=== PATIENT | female | born 1945 | race Caucasian/White ===

== ENCOUNTER → 2018-04-25 | Day surgery (SDC) | payer MEDICARE ==
[~2018-04-25] MED LIST: IV RINGERS,LACTATED 1000ML 1,000 ML IV SCH; LEVO75TA5 PO; LIDOCAINE 1% PF 2 ML VIAL. ID PRN; LIDOCAINE 2% PF 2ML VIAL. ONE; MIDAZOLAM HCL/PF 2 MG/2 ML VIAL. IV PRN; PROPOFOL 20 ML IV ONE; SIMV10TA3 PO; fentaNYL PF VIAL 100 MCG/2 ML VIAL IV PRN
[2018-04-25 11:00] VITALS: BP 120/68
--- NOTE | 2018-04-25 23:57 | HP ---
ADMIT DATE: UPDATE HISTORY AND PHYSICAL REFERRING PHYSICIAN: Dr. Atul Davis. REASON FOR REFERRAL: Dysphagia. HISTORY OF PRESENT ILLNESS: This is a 72-year-old female whose past medical history is significant for reflux, hyperlipidemia and hypothyroidism, who is seen for dysphagia in the upper esophagus, moderately severe and unchanged, mainly with solids, but occasionally with liquids, with symptoms of heartburn. Risk factors for reflux are positive for alcohol, but not caffeine or tobacco. She has a sticking sensation. Weight and appetite have been stable. With continued issues, she requests additional evaluation. PAST MEDICAL HISTORY: Hypothyroidism, hyperlipidemia and reflux. ALLERGIES: PENICILLIN. MEDICATIONS: Include levothyroxine and simvastatin. SOCIAL HISTORY: She is a nonsmoker, social drinker. FAMILY HISTORY: Significant for breast cancer with grandmother, CVA with the father, colon polyps with sister and DE with the father. PAST SURGICAL HISTORY: Status post breast surgery and . REVIEW OF SYSTEMS: Per records. PHYSICAL EXAMINATION: GENERAL: Reveals a well-nourished, well-developed female, who is alert, cooperative, in no acute distress. VITAL SIGNS: Temperature is 97, pulse 91 and respirations are 20. HEENT EXAMINATION: Reveals normocephalic and atraumatic head. Pupils and extraocular muscles are not tested. Sclerae anicteric. NECK: Supple. LUNGS: Clear. CARDIOVASCULAR EXAMINATION: Reveals an S1 and S2, without S3, S4 or appreciable murmur. ABDOMEN: Exam reveals soft abdomen. Normal bowel sounds, without appreciable hepatosplenomegaly. EXTREMITIES: Exam reveals no cyanosis, clubbing or edema. IMPRESSION AND PLAN: Dysphagia, etiology is to be determined. Differential includes Schatzki's ring, eosinophilic esophagitis, malignancy, Diana's, achalasia and extrinsic compression. Therefore, I recommend upper endoscopy to further assess possible biopsies and dilatation. If this is unrevealing, then imaging CT scan and/or motility study may be pursued. PEPPER MAGAÑA MD DR: LAURA/natalie JOB#: [id number] / [id number]
--- NOTE | 2018-04-29 09:09 | PATHOLOGY ---
[facility] Accession Number: [id number] . 01 Material submitted: . DISTAL ESOPHAGUS . 01 Clinician provided ICD-10: R13.10 . 01 Clinical history: . Dysphagia, rule out Diana's . 02 Diagnosis: Esophageal biopsies, distal esophagus: - Esophagitis with eosinophils. See comment. . (JPM/at;04/28/2018) QTA/04/28/2018 . 02 Comment: Sections of the distal esophageal biopsy reveal segments of focally tangentially oriented, hyperplastic squamous esophageal mucosa. There are focally increased intraepithelial eosinophils. The differential diagnosis of esophagitis with eosinophils includes reflux esophagitis, "pill esophagitis", and eosinophilic esophagitis. In one focus, there are approximately 20 intraepithelial eosinophils per high powered field, such that I cannot exclude the possibility of eosinophilic esophagitis. There is no evidence of Diana's change, dysplasia, or malignancy. . (JPM/at;04/28/2018) . 02 Electronically signed: . Wilner Sandoval MD, Pathologist NPI- [id number] . 01 Gross description: . Received in formalin labeled "Hobson, Janine, distal esophagus," are 3 segments of chapa soft tissue measuring 0.9 x 0.7 x 0.2 cm in aggregate dimensions and ranging from 0.3 to 0.8 cm in maximum dimension. The specimen is submitted entirely in cassette A1. (TSD; 04/25/2018) TOB/TOB . 02 Pathologist provided ICD-10: K20.9 . 02 CPT . 964610 Specimen Comment: A courtesy copy of this report has been sent to Specimen Comment: [phone], . Specimen Comment: Report sent to / DR SUTTON Specimen Comment: A duplicate report has been generated due to demographic updates. Performed at: 01 [facility] [address] [facility] [address], [place] [id number] MD Chato Padilla MD Phone: [phone] Performed at: 02 [facility] [place] [address] [place], [place] [id number] MD Wilner Sandoval MD Phone: [phone]
== END | disposition home or self-care (01) ==
LOC: SURG 09:22
PROVIDERS: ATTEND Internal Medicine Gastroenterology
DX: K22.2 Esophageal obstruction (principal); K21.0 Gastro-esophageal reflux disease with esophagitis; Z88.0 Allergy status to penicillin; E03.9 Hypothyroidism, unspecified; E78.5 Hyperlipidemia, unspecified; Z79.899 Other long term (current) drug therapy; Z72.89 Other problems related to lifestyle; Z82.3 Family history of stroke; Z80.3 Family history of malignant neoplasm of breast; Z82.49 Family history of ischemic heart disease and other diseases of the circulatory system; Z83.71 Family history of colonic polyps; Z98.890 Other specified postprocedural states
CPT/HCPCS: 43239; 43450; 88305; J2001; J2704

== ENCOUNTER → 2020-03-11 | Outpatient (CLI) | payer MEDICARE ==
[2018-04-25 11:00] VITALS: BP 120/68
[~2020-03-11] MED LIST changes: -IV RINGERS,LACTATED 1000ML 1,000 ML IV SCH; -LIDOCAINE 1% PF 2 ML VIAL. ID PRN; -LIDOCAINE 2% PF 2ML VIAL. ONE; -MIDAZOLAM HCL/PF 2 MG/2 ML VIAL. IV PRN; -PROPOFOL 20 ML IV ONE; +SIMV10TA15 PO; -SIMV10TA3 PO; +SINCALIDE 1.59 MCG in IV NORMAL SALINE 50ML 30 ML IV ONE; -fentaNYL PF VIAL 100 MCG/2 ML VIAL IV PRN
--- NOTE | 2020-03-11 09:00 | RAD ---
EXAM: RIGHT UPPER QUADRANT ULTRASOUND. HISTORY: Epigastric pain and nausea. COMPARISON: None. FINDINGS: Sonographic evaluation of the right upper quadrant was performed. The liver appears normal in parenchymal echotexture. There are no focal lesions. The gallbladder is unremarkable without evidence of stones, wall thickening or pericholecystic fluid. There is no sonographic Stevenson sign. The common duct measures 4 mm. The visualized portions of the head, body and tail of the pancreas reveal no abnormality. The right kidney measures 10.2 cm. Cortical thickness and echogenicity are preserved. There is no hydronephrosis. The visualized portions of the abdominal aorta and inferior vena cava are grossly patent and normal in caliber. IMPRESSION: 1. No cause for pain is identified sonographically. Electronically signed by: Fay Sharma MD (03/11/2020 8:57 AM) [id number]
--- NOTE | 2020-03-11 11:20 | RAD ---
EXAM: HEPATOBILIARY SCINTIGRAPHY WITH GALLBLADDER EJECTION FRACTION CALCULATION. HISTORY: Abdominal pain/nausea. TECHNIQUE: 5.5 mCi technetium-99m Choletec were administered intravenously and scintigraphic images of the abdomen obtained. After filling of the gallbladder, 1.59 mcg of sincalide were infused and the gallbladder ejection fraction calculated. FINDINGS: There is prompt hepatic clearance of tracer from the blood pool. There is homogeneous distribution throughout the liver. There is normal filling of the gallbladder and clearance into the biliary tree and small bowel. The gallbladder ejection fraction is 27% (normal >35%). IMPRESSION: 1. Decreased gallbladder ejection fraction suggesting biliary dyskinesia. Electronically signed by: Fay Sharma MD (03/11/2020 11:17 AM) [id number]
== END | disposition home or self-care (01) ==
LOC: US 10:12
PROVIDERS: ATTEND Internal Medicine Gastroenterology
DX: R11.0 Nausea (principal); R10.13 Epigastric pain
CPT/HCPCS: 76705; 78227; A9537; J2805